=== PATIENT | female | born 2000 | race American Indian/Alaskan Native ===

== ENCOUNTER 2021-09-03 12:23 | Emergency (ER) | payer MEDICAID ==
[2021-09-03] MEDS ORDERED: IPRATROPIUM/ALBUTEROL SULFATE 3 ML AMPUL.NEB IH ONE (15:13)
--- NOTE | 2021-09-03 15:13 | Emergency Department Report ---
- General Chief Complaint: Dyspnea/Respdistress Stated Complaint: COVID Time Seen by Provider: 09/03/21 14:58 Source: patient Mode of arrival: Ambulatory Limitations: No Limitations - History of Present Illness Initial Comments: 21-year-old female who is currently 22 weeks was sent to the ER by her MID TEACHER for URI/flulike symptoms" being Covid positive. Patient states that her symptoms started yesterday. She states that she took her home Covid 19 test and it was positive. She states she has been having chills, intermittent diaphoresis, chest tightness, shortness of breath, productive cough, rhinorrhea, nasal congestion and a mild sore throat. She states that she called her MID TEACHER and MID TEACHER recommended she come to the ER. Patient admits that she is an asthmatic, but she states that she does not get much flareup of her asthma the last time she had to use her inhaler was last year and so when her symptoms started yesterday she was unable to find her inhaler. She states that she thinks she was admitted for her asthma when she was a kid but none since then. She states that she had been around her aunt and uncle who has been sick with similar symptoms. She also admits to recent travel to [place] about 1.5 to 2 weeks ago. She denies any lower extremity swelling or calf pain. She denies any abdominal pain or vaginal bleeding. MD Complaint: cough, other (SOB, rhinorrhea, nasal congestion, +COVID) -: days(s) (1) - Related Data Previous Rx's Medication Instructions Recorded Last Taken Type Albuterol Sulfate [Proventil Hfa] 2 puff IH 4XD #1 hfa.[email or web address] 09/03/21 Unknown Rx Allergies Allergy/AdvReac Type Severity Reaction Status Date / Time No Known Allergies Allergy Unverified 09/03/21 12:38 ED Review of Systems ROS: Stated complaint: COVID Other details as noted in HPI Comment: All other systems reviewed and negative Constitutional: chills, diaphoresis. denies: fever Eyes: denies: eye pain, eye discharge, vision change Respiratory: cough, shortness of breath. denies: wheezing Cardiovascular: other (Chest tightness) Gastrointestinal: denies: abdominal pain, nausea, vomiting, diarrhea, constipation, hematemesis, hematochezia Genitourinary: denies: urgency, dysuria, frequency, hematuria, discharge, abnormal menses, dyspareunia Musculoskeletal: denies: back pain, joint swelling, arthralgia Skin: denies: rash, lesions, change in color, change in hair/nails, pruritus Neurological: denies: headache, weakness, numbness, paresthesias, confusion, abnormal gait, vertigo Psychiatric: denies: anxiety, depression, auditory hallucinations, visual hallucinations, homicidal thoughts, suicidal thoughts Hematological/Lymphatic: denies: easy bleeding, easy bruising, swollen glands ED Past Medical Hx - Medications Home Medications: Home Medications Medication Instructions Recorded Confirmed Last Taken Type Albuterol Sulfate [Proventil Hfa] 2 puff IH 4XD #1 hfa.[email or web address] 09/03/21 Unknown Rx ED Physical Exam - General Limitations: No Limitations General appearance: alert, in no apparent distress - Head Head exam: Present: atraumatic, normocephalic, normal inspection - Eye Eye exam: Present: normal appearance, PERRL, EOMI Pupils: Present: normal accommodation - ENT ENT exam: Present: normal exam - Neck Neck exam: Present: normal inspection, full ROM. Absent: meningismus - Respiratory Respiratory exam: Present: normal lung sounds bilaterally. Absent: respiratory distress, wheezes, rales, rhonchi - Cardiovascular Cardiovascular Exam: Present: normal rhythm, tachycardia, normal heart sounds - GI/Abdominal GI/Abdominal exam: Present: soft. Absent: distended, tenderness, guarding - Extremities Exam Extremities exam: Present: normal inspection, full ROM. Absent: pedal edema, calf tenderness - Neurological Exam Neurological exam: Present: alert, oriented X3, CN II-XII intact, normal gait - Psychiatric Psychiatric exam: Present: normal affect, normal mood - Skin Skin exam: Present: intact ED Course Vital Signs 09/03/21 09/03/21 09/03/21 12:39 16:22 19:28 Temperature 98.8 F 98.8 F Pulse Rate 105 H 92 H Pulse Rate [ 98 H Anterior Bilateral Throughout] Respiratory 18 16 Rate Respiratory 20 Rate [Anterior Bilateral Throughout] Blood Pressure 111/71 114/69 [Right] O2 Sat by Pulse 99 100 Oximetry ED Medical Decision Making - Lab Data Result diagrams: 09/03/21 15:18 09/03/21 15:18 - EKG Data EKG shows normal: sinus rhythm Rate: normal (90) - EKG Data Interpretation: normal EKG - Medical Decision Making 1519: Discussed case with both Dr. Kent and Dr Deysi Garcia. Given that patient is , Covid positive, and recent travel long distance and she is tachycardic, recommend doing a PE rule out and doing a CTA. Patient will also get labs and a breathing treatment. Discussed the risk and benefits of doing a CT with patient. Patient expressed understanding of both risk and benefits and is in agreement to doing a CAT scan of her chest. 1648: CBC and CMP stable. EKG shows NSR with HR 90, and no other abnormality. Pt did get neb treatment and she states she feels "a little better". She is currently sitting in chair getting IV brie. She is not in any distress, not ill appearing, and neurologically intact. CT aware of scan, informed patient they will come get her shortly for test. The patient's care has been transferred to and accepted by[Dr Kent]. We discussed: The patient's chief complaints; labs and imaging that have been completed and those that are still pending; any treatment provided and the patient's response to treatment; any significant change in condition; the treatment plan prior to the transfer of care. The accepting provider will follow up on all pending labs and imaging and make any necessary changes to the current impression and/or treatment plan. The accepting physician/midlevel is now responsible for the patient's care and final disposition. Critical care attestation.: If time is entered above; I have spent that time in minutes in the direct care of this critically ill patient, excluding procedure time. ED Disposition Clinical Impression: COVID-19 virus infection Asthmatic bronchitis Qualifiers: Asthma severity: mild Asthma persistence: intermittent Asthma complication type: with acute exacerbation Qualified Code(s): J45.21 - Mild intermittent asthma with (acute) exacerbation Disposition: 01 HOME / SELF CARE / HOMELESS Is pt being admited?: No Does the pt Need Aspirin: No Condition: Stable Instructions: Asthma, Adult, Chronic Bronchitis (ED) Additional Instructions: Continue current medication. Drink plenty water. Return for problems. Follow- up with your regular doctor and your imaging engineer. Isolate at home. Use Tylenol for fever. Prescriptions: Albuterol Sulfate [Proventil Hfa] 2 puff IH 4XD #1 [email or web address] Referrals: PRIMARY CARE, [Primary Care Provider] - 3-5 Days
[2021-09-03 15:32] LABS: Basophils % (Auto) 0.4 % (0.0-1.8); Eosinophils % (Auto) 0.4 % (0.0-4.3); Hematocrit 32.2 % (30.3-42.9); Hemoglobin 10.4 gm/dl (10.1-14.3); Lymphocytes # (Auto) 0.5 K/mm3 (1.2-5.4); Lymphocytes % (Auto) 11.2 % (13.4-35.0); Mean Corpuscular HGB Conc 32 % (30-34); Mean Corpuscular Volume 89 fl (79-97); Monocytes # (Auto) 0.7 K/mm3 (0.0-0.8); Monocytes % (Auto) 14.1 % (0.0-7.3); Platelet Count 176 K/mm3 (140-440); Red Blood Count 3.63 M/mm3 (3.65-5.03); Red Cell Distribution Width 13.3 % (13.2-15.2)
[2021-09-03 15:51] LABS: Alanine Aminotransferase 32 units/L (7-56); Albumin 3.4 g/dL (3.9-5); Blood Urea Nitrogen 4 mg/dL (7-17); Calcium 8.4 mg/dL (8.4-10.2); Hemolysis Index 31
[2021-09-03 15:52] LABS: BUN/Creatinine Ratio 8
--- NOTE | 2021-09-03 17:39 | Cat Scan Report ---
CTA CHEST WITH IV CONTRAST INDICATION: SOB/tachy/+preg/+covid/+travel long distance CONTRAST: 100 cc Omnipaque 350 IV COMPARISON: None available. Three-plane MIP reconstructions were produced. All CT scans at this location are performed using CT d ose reduction for ALARA by means of automated exposure control. NOTE: Resolution is decreased and artifact is introduced by the patient's size. FINDINGS: No significant axillary or chest wall lesions are seen. Visualized portions of the upper ab domen show no abnormalities. No pleural effusions are seen. No mediastinal or hilar masses are noted. Anterior mediastinal density is thought related to thymic tissue in the ischium patient. Bronchial l esions are seen. No pneumothorax or pneumomediastinum are noted. Lung campuzano are clear of infiltrates , nodules, or masses. Minimal atelectasis is seen in the left lower lobe. Aorta shows no aneurysmal dilatation or evidence of dissection. Acceptable opacification of the pulmonary arterial system was achieved. I do not see convincing evide nce of pulmonary thromboembolism. IMPRESSION: Negative study Signer Name: Moisés Gardner MD Signed: 09/03/2021 5:34 PM Workstation Name: [id number]
--- NOTE | 2021-09-03 19:03 | Emergency Department Report ---
Blank Doc - Documentation Documentation: Patient had briefly presented secondary to difficulty breathing in the setting of coronavirus in . There are some concern that she could have a pulmonary embolism due to recent travel and difficulty breathing. She was tachycardic. PERC criteria cannot be used to exclude PE. CTA was completed. This was normal. On exam, patient was in no distress. She did not have chest pain. Heart was regular and lungs were clear. At this time, she was discharged.
[2021-09-03 19:31] VITALS: BP 114/69
--- NOTE | 2021-09-04 13:28 | Electrocardiograph Report ---
[facility] Test Date: 2021-09-03 Test Time: 16:00:39 Pat Name: VADIM GONZALEZ Department: Room: Gender: F Marketing Programs Specialist: CRISTIANE : 2000 Requested By: PATTI OBRIEN Order Number: [id number] Reading MD: Amilcar Malone Measurements Intervals [place] Rate: 90 P: 55 NE: 130 QRS: 15 QRSD: 87 T: 10 QT: 365 QTc: 447 Interpretive Statements Sinus rhythm No previous ECG available for comparison Electronically Signed On 09-04-2021 13:28:16 EST by Amilcar Malone
== END 2021-09-03 19:00 | disposition home or self-care (01) ==
LOC: ED 12:23
DX: O98.512 Other viral diseases complicating pregnancy, second trimester (principal); O26.892 Other specified pregnancy related conditions, second trimester; J45.21 Mild intermittent asthma with (acute) exacerbation
CPT/HCPCS: 36415; 71275; 80053; 85025; 93005; 94640; 99284; Q9967; 94644